=== PATIENT | male | born 1975 | race Caucasian/White ===

== ENCOUNTER 2022-09-08 18:30 | Emergency (ER) | payer OTHER ==
[~2022-09-08] VITALS: Ht 172.7 cm; Wt 81.8 kg
[2022-09-09] MEDS ORDERED: LIDOCAINE 1% 10 ML VIAL ID ONE (03:30)
[2022-09-09] MEDS ORDERED: BUPIVACAINE HCL 0.25% 50 ML VIAL IM ONE (03:30)
[2022-09-09] MEDS ORDERED: BUPIVACAINE HCL/PF 0.25% 10 ML VIAL IM ONE (03:45)
[2022-09-09 06:11] VITALS: BP 141/67
== END 2022-09-09 06:28 | disposition home or self-care (01) ==
LOC: EMS 18:30
DX: S63.286A Dislocation of proximal interphalangeal joint of right little finger, initial encounter (principal); S20.212A Contusion of left front wall of thorax, initial encounter; W17.89XA Other fall from one level to another, initial encounter; Y93.89 Activity, other specified; Y92.89 Other specified places as the place of occurrence of the external cause; Y99.0 Civilian activity done for income or pay
CPT/HCPCS: 99285; 26770; 71101; 73130; J3490 ×2